=== PATIENT | female | born 1950 | race Caucasian/White ===

== ENCOUNTER 2016-12-24 01:27 | Inpatient (IN) ==
[2016-12-24] MEDS ORDERED: Ipratropium/Albuterol Neb 3 ML IH ONE ×2 (01:40→01:52)
[2016-12-24] MEDS ORDERED: methylPREDNISolone 125 MG/2 ML VIAL IVP ONE (01:40)
[2016-12-24] MEDS ORDERED: *HR* LORazepam 2 MG/ML VIAL IVP ONE (01:41)
--- NOTE | 2016-12-24 01:45 | Emergency Department Note ---
Disposition Clinical Impression: Pneumonia Qualifiers: Pneumonia type: due to unspecified organism Laterality: left Lung location: lower lobe of lung Qualified Code(s): J18.1 - Lobar pneumonia, unspecified organism Asthma with exacerbation Qualifiers: Asthma severity: mild intermittent Qualified Code(s): J45.21 - Mild intermittent asthma with (acute) exacerbation Disposition: Admitted As Inpatient Condition: Good Referrals: Nash Hicks DO [Primary Care Provider] - SOB HPI - General Stated Complaint: Difficulty Breathing tightness in chest Source: patient, EMS Mode of arrival: EMS Limitations: no limitations Nursing Notes Reviewed: Yes Vital Signs Reviewed: Yes - History of Present Illness 66-year-old female presents to the emergency department by emergency squad for evaluation of shortness of breath. Patient called the squad because she was feeling increasing shortness of breath. Patient states she has been having a cough over the last 7-8 days. States is nonproductive. She tonight felt short of breath and panicky that prompted her to come to the emergency room. Patient denies any chest pain. She denies any leg swelling. She denies any history of COPD or CHF. She states she has had some problems with asthma on a mild amount in the past. She is nonsmoker. - Related Data Home Medications Medication Instructions Recorded Confirmed Citalopram [CeleXA] 20 mg PO DAILY 06/12/15 06/12/15 FentaNYL PATCH [Duragesic] 1 each TD Q3D 06/12/15 06/12/15 Gabapentin [Neurontin] 300 mg PO BID 06/12/15 06/12/15 Hydrocodone/Acetaminophen [Disput[place] 1 tab PO QID PRN 06/12/15 06/12/15 5-325 Tablet] LORazepam [Ativan] 1 mg PO BID 06/12/15 06/12/15 Pioglitazone HCl [Actos] 15 mg PO DAILY 06/12/15 06/12/15 SitaGLIPtin [Januvia] 25 mg PO DAILY 06/12/15 06/12/15 glipiZIDE [Glucotrol] 5 mg PO DAILY 06/12/15 06/12/15 Previous Rx's Medication Instructions Recorded Azithromycin [Azithromycin 6-Tab 250 mg PO PER PKG DI #6 tab 12/15/16 Pack] predniSONE [PredniSONE] 40 mg PO DAILY #7 tablet 12/15/16 Allergies Allergy/AdvReac Type Severity Reaction Status Date / Time No Known Allergies Allergy Verified 12/24/16 01:44 All systems ED: reviewed and negative except as stated. Past Medical History - Past Medical History Attestation: Yes The following information was validated with the patient. Source: patient Medical history: Reports: diabetes, fibromyalgia, hypertension, kidney stones, migraine, other Psychiatric history: Reports: anxiety, depression, PTSD DRAFTER (CAD) ELECTRONIC history: Reports: non-contributory - Social History Smoking Status: Never smoker Smokeless Tobacco Status: No Alcohol use: Reports: none Drug use: Reports: none Physical Exam Constitutional: Patient is [alert], obese , mildly tachypneic with frequent cough and cooperative. . The patient appears symptomatic, [nontoxic], and mildly ill. HENT: Head: Normocephalic and atraumatic. Right Ear: External ear normal. Left Ear: External ear normal. Nose: Nose normal. Mouth/Throat: Oropharynx is clear and mucous membranes show [good hydration.] Eyes: Conjunctivae and EOM are normal. Pupils are equal, round, and reactive to light. Right eye exhibits [no] discharge. Left eye exhibits [no] discharge. Neck: Trachea is midline, normal range of motion and [phonation normal]. Neck supple. Cardiovascular: [Regular rhythm], S1 normal, S2 normal, normal heart sounds and intact distal pulses. Exam reveals no gallop and no friction rub. No murmur heard. [Capillary refill is brisk.] [Peripheral pulses are 2+] Pulmonary/Chest: Effort increased No stridor. Mild tachypnea. Mild respiratory distress. There are decreased breath sounds. There are diffuse rhonchi heard throughout all lung reed and a few faint wheezes. There are no rales. Abdominal: Soft. [Bowel sounds are normal]. There exhibits [no] distension and [no] mass. There is no hepatosplenomegaly. There is [no tenderness], [no] CVA tenderness. There is [no rigidity, no rebound, no guarding]. Musculoskeletal: Normal range of motion of uninvolved extremities. There exhibits [no edema]. [ ] Neurological: Patient is alert. Patient displays no atrophy and no tremor. No cranial nerve deficit and exhibits normal muscle tone. Coordination normal. Skin: Skin is warm and dry. No rash noted. No erythema. [Skin color is normal.} Psychiatric: Patient has a anxious mood and affect. Course Course Narrative: Patient showed marked improvement after initial treatment with breathing treatments and steroids. Her chest x-ray suggests the possibility of early pneumonia. Her laboratory studies show mild CO2 retention. Her repeat examination continues to show rhonchi but no wheezes at this time. He and I discussed hospitalization versus discharge and she is afraid to go home. We will admit her for IV antibiotics and oxygen and bronchodilators for further treatment. Vital Signs O2 Sat by Pulse Oximetry 99 12/24/16 01:40 Temperature 98.5 F 12/24/16 01:46 Pulse Rate 101 12/24/16 02:57 Respiratory Rate 18 12/24/16 02:57 Blood Pressure 127/70 12/24/16 02:57 O2 Sat by Pulse Oximetry 95 12/24/16 02:57 Oxygen Delivery Oxygen Delivery Nasal Cannula Shortness of Breath/Dyspnea - Differential Diagnosis Likely: pneumonia, asthma with exacerbation. Unlikely: acute exacerbation of chronic obstructive airways disease, congestive heart failure, pulmonary embolism, pneumothorax - Lab Data Lab results reviewed: Yes I reviewed the patient's lab results. Result diagrams: 12/24/16 01:41 12/24/16 01:41 Lab Results 12/24/16 12/24/16 12/24/16 Range/Units 01:41 01:41 01:41 WBC 13.2 H (4.3-11.1) K/mcL RBC 5.02 H (3.82-4.97) M/mcL Hgb 13.4 (11.5-15.4) g/dL Hct 43.2 (35.3-44.9) % MCV 86.1 (83.0-100.0) fL MCH 26.7 L (28.0-33.3) pg MCHC 31.0 L (31.6-35.5) g/dL RDW 14.7 H (11.5-14.5) % Plt Count 383 (140-400) K/mcL MPV 11.4 (9.4-12.4) fL Immature Gran % 0.8 (0-4) % Seg Neutrophils % 54.9 % Lymphocytes % 33.9 % Monocytes % 7.5 % Eosinophils % 2.3 % Basophils % 0.6 % Neutrophils # 7.3 (1.6-8.9) K/mcL Lymphocytes # 4.5 (0.6-4.6) K/mcL Monocytes # 1.0 (0.0-1.3) K/mcL Eosinophils # 0.3 (0.0-0.6) K/mcL Basophils # 0.1 (0.0-0.2) K/mcL PT 9.7 (9.4-12.1) Seconds INR 0.9 APTT 25.6 L (26.0-36.0) Seconds ABG pH (7.32-7.45) pH Units ABG pCO2 (35-45) mmHg ABG pO2 (85-104) mmHg ABG HCO3 (21-27) mEQ/L ABG Total CO2 (20-26) mEq/L ABG O2 Saturation (95-98) % ABG Base Excess (-2.0 to 3.0) mEq/L VBG Lactic Acid (0.5-2.2) mmol/L Liter Flow L/MIN Blood Gas Modality Inspired O2 % Sodium 143 (136-145) mEq/L Potassium 4.8 H (3.5-4.5) mEq/L Chloride 102 (98-109) mEq/L Carbon Dioxide 28 (19-29) mEq/L BUN 13 (7-20) mg/dL Creatinine 0.91 (0.57-1.11) mg/dL Est GFR ( Amer) > 60 (> 60) Est GFR (Non-Af Amer) > 60 (> 60) BUN/Creatinine Ratio 14 (6-26) Glucose 141 H (70-99) mg/dL Calculated Osmolality 298 (280-300) Calcium 9.6 (8.6-10.8) mg/dL Total Bilirubin 0.2 (0.2-1.2) mg/dL Direct Bilirubin 0.1 (0.0-0.5) mg/dL Indirect Bilirubin 0.1 (0.0-1.2) mg/dL AST 21 (5-34) Units/L ALT 17 (0-55) Units/L Alkaline Phosphatase 109 (38-126) Units/L Troponin I (0-0.03) ng/mL B-Natriuretic Peptide (0-100) pg/mL Serum Total Protein 8.1 (6.0-8.3) g/dL Albumin 3.9 (3.5-5.0) g/dL Globulin 4.2 H (2.4-3.5) g/dL Albumin/Globulin Ratio 0.9 L (1.1-2.2) 12/24/16 12/24/16 12/24/16 Range/Units 01:41 01:41 02:15 WBC (4.3-11.1) K/mcL RBC (3.82-4.97) M/mcL Hgb (11.5-15.4) g/dL Hct (35.3-44.9) % MCV (83.0-100.0) fL MCH (28.0-33.3) pg MCHC (31.6-35.5) g/dL RDW (11.5-14.5) % Plt Count (140-400) K/mcL MPV (9.4-12.4) fL Immature Gran % (0-4) % Seg Neutrophils % % Lymphocytes % % Monocytes % % Eosinophils % % Basophils % % Neutrophils # (1.6-8.9) K/mcL Lymphocytes # (0.6-4.6) K/mcL Monocytes # (0.0-1.3) K/mcL Eosinophils # (0.0-0.6) K/mcL Basophils # (0.0-0.2) K/mcL PT (9.4-12.1) Seconds INR APTT (26.0-36.0) Seconds ABG pH 7.31 L (7.32-7.45) pH Units ABG pCO2 64 H (35-45) mmHg ABG pO2 74 L (85-104) mmHg ABG HCO3 32.2 H (21-27) mEQ/L ABG Total CO2 34.1 H (20-26) mEq/L ABG O2 Saturation 93 L (95-98) % ABG Base Excess 3.8 H (-2.0 to 3.0) mEq/L VBG Lactic Acid (0.5-2.2) mmol/L Liter Flow 4 L/MIN Blood Gas Modality NC Inspired O2 36 % Sodium (136-145) mEq/L Potassium (3.5-4.5) mEq/L Chloride (98-109) mEq/L Carbon Dioxide (19-29) mEq/L BUN (7-20) mg/dL Creatinine (0.57-1.11) mg/dL Est GFR ( Amer) (> 60) Est GFR (Non-Af Amer) (> 60) BUN/Creatinine Ratio (6-26) Glucose (70-99) mg/dL Calculated Osmolality (280-300) Calcium (8.6-10.8) mg/dL Total Bilirubin (0.2-1.2) mg/dL Direct Bilirubin (0.0-0.5) mg/dL Indirect Bilirubin (0.0-1.2) mg/dL AST (5-34) Units/L ALT (0-55) Units/L Alkaline Phosphatase (38-126) Units/L Troponin I 0.03 (0-0.03) ng/mL B-Natriuretic Peptide 30 (0-100) pg/mL Serum Total Protein (6.0-8.3) g/dL Albumin (3.5-5.0) g/dL Globulin (2.4-3.5) g/dL Albumin/Globulin Ratio (1.1-2.2) 12/24/16 Range/Units 02:15 WBC (4.3-11.1) K/mcL RBC (3.82-4.97) M/mcL Hgb (11.5-15.4) g/dL Hct (35.3-44.9) % MCV (83.0-100.0) fL MCH (28.0-33.3) pg MCHC (31.6-35.5) g/dL RDW (11.5-14.5) % Plt Count (140-400) K/mcL MPV (9.4-12.4) fL Immature Gran % (0-4) % Seg Neutrophils % % Lymphocytes % % Monocytes % % Eosinophils % % Basophils % % Neutrophils # (1.6-8.9) K/mcL Lymphocytes # (0.6-4.6) K/mcL Monocytes # (0.0-1.3) K/mcL Eosinophils # (0.0-0.6) K/mcL Basophils # (0.0-0.2) K/mcL PT (9.4-12.1) Seconds INR APTT (26.0-36.0) Seconds ABG pH (7.32-7.45) pH Units ABG pCO2 (35-45) mmHg ABG pO2 (85-104) mmHg ABG HCO3 (21-27) mEQ/L ABG Total CO2 (20-26) mEq/L ABG O2 Saturation (95-98) % ABG Base Excess (-2.0 to 3.0) mEq/L VBG Lactic Acid 1.2 (0.5-2.2) mmol/L Liter Flow L/MIN Blood Gas Modality Inspired O2 % Sodium (136-145) mEq/L Potassium (3.5-4.5) mEq/L Chloride (98-109) mEq/L Carbon Dioxide (19-29) mEq/L BUN (7-20) mg/dL Creatinine (0.57-1.11) mg/dL Est GFR ( Amer) (> 60) Est GFR (Non-Af Amer) (> 60) BUN/Creatinine Ratio (6-26) Glucose (70-99) mg/dL Calculated Osmolality (280-300) Calcium (8.6-10.8) mg/dL Total Bilirubin (0.2-1.2) mg/dL Direct Bilirubin (0.0-0.5) mg/dL Indirect Bilirubin (0.0-1.2) mg/dL AST (5-34) Units/L ALT (0-55) Units/L Alkaline Phosphatase (38-126) Units/L Troponin I (0-0.03) ng/mL B-Natriuretic Peptide (0-100) pg/mL Serum Total Protein (6.0-8.3) g/dL Albumin (3.5-5.0) g/dL Globulin (2.4-3.5) g/dL Albumin/Globulin Ratio (1.1-2.2) - Radiology Data Radiology results reviewed: Yes I reviewed the patient's radiology results. XR/XR chest 1V portable IMPRESSION: Left basilar atelectasis or, less likely, pneumonia - EKG Data EKG attestation: Yes I reviewed and interpreted this EKG. EKG shows normal: Reports: sinus rhythm, axis, intervals, QRS complexes, ST-T waves Rate: Reports: tachycardia
[2016-12-24 02:25] LABS: INR 0.9; Prothrombin Time 9.7 Seconds (9.4-12.1)
[2016-12-24 02:26] LABS: ABG HCO3 32.2 mEQ/L (21-27); ABG PCO2 64 mmHg (35-45); ABG PH 7.31 pH Units (7.32-7.45); ABG PO2 74 mmHg (85-104)
[2016-12-24 02:27] LABS: ABG Base Excess 3.8 mEq/L (-2.0 to 3.0); ABG Oxygen Saturation 93 % (95-98); ABG TCO2 34.1 mEq/L (20-26); Blood Gas Liter Flow 4 L/MIN
[2016-12-24 02:28] LABS: Blood Gas FiO2 36 %
[2016-12-24 02:28] LABS: Activated Partial Thrombo Time 25.6 Seconds (26.0-36.0)
[2016-12-24 02:36] LABS: Alanine Aminotransferase 17 Units/L (0-55); Albumin 3.9 g/dL (3.5-5.0); Albumin/Globulin Ratio 0.9 (1.1-2.2); Alkaline Phosphatase 109 Units/L (38-126); Aspartate Amino Transferase 21 Units/L (5-34); BUN/Creatinine Ratio 14 (6-26); Bilirubin,Direct 0.1 mg/dL (0.0-0.5); Bilirubin,Indirect 0.1 mg/dL (0.0-1.2); Bilirubin,Total 0.2 mg/dL (0.2-1.2); Blood Urea Nitrogen 13 mg/dL (7-20); Calcium 9.6 mg/dL (8.6-10.8); Carbon Dioxide 28 mEq/L (19-29); Chloride 102 mEq/L (98-109); Globulin 4.2 g/dL (2.4-3.5); Glucose 141 mg/dL (70-99); Osmolality,Calculated 298 (280-300); Potassium 4.8 mEq/L (3.5-4.5); Sodium 143 mEq/L (136-145); Total Protein 8.1 g/dL (6.0-8.3); eGFR For African Americans > 60 (> 60); eGFR For Non-African Americans > 60 (> 60)
[2016-12-24 02:38] LABS: Basophils # 0.1 K/mcL (0.0-0.2); Basophils % 0.6 %; Eosinophils # 0.3 K/mcL (0.0-0.6); Eosinophils % 2.3 %; Hematocrit 43.2 % (35.3-44.9); Hemoglobin 13.4 g/dL (11.5-15.4); Immature Granulocytes % 0.8 % (0-4); Lymphocytes # 4.5 K/mcL (0.6-4.6); Lymphocytes % 33.9 %; Mean Corpuscular Hemoglobin 26.7 pg (28.0-33.3); Mean Corpuscular Volume 86.1 fL (83.0-100.0); Mean Platelet Volume 11.4 fL (9.4-12.4); Monocytes % 7.5 %; Neutrophils # 7.3 K/mcL (1.6-8.9); Platelet Count 383 K/mcL (140-400); Red Blood Count 5.02 M/mcL (3.82-4.97); Red Cell Distribution Width 14.7 % (11.5-14.5); Segmented Neutrophils % 54.9 %
[2016-12-24] MEDS ORDERED: Naloxone 0.4 MG/ML INJ IVP PRN (03:21)
[2016-12-24] MEDS ORDERED: Ondansetron ODT 4 MG TAB.RAPDIS SL PRN (03:21)
[2016-12-24] MEDS: *HR* FentaNYL PATCH 25 MCG PATCH TD SCH (04:15)
[2016-12-24] MEDS: *HR* Enoxaparin 40 MG/0.4 ML SYRINGE SQ SCH (05:17)
[2016-12-24] MEDS: methylPREDNISolone 125 MG/2 ML VIAL IVP SCH ×3 (05:17→20:43)
[2016-12-24] MEDS: Ipratropium/Albuterol Neb 3 ML IH SCH ×3 (05:17→17:43)
[2016-12-24] MEDS: *HR* GlipiZIDE 5 MG TABLET PO SCH (09:10)
[2016-12-24] MEDS: Acetaminophen 325 MG TABLET PO PRN ×2 (09:10→21:00)
[2016-12-24] MEDS: Gabapentin 300 MG CAPSULE PO SCH ×2 (09:11→20:43)
[2016-12-24] MEDS: *HR* Pioglitazone 15 MG TABLET PO SCH (09:11)
[2016-12-24] MEDS: *HR* LORazepam 1 MG TABLET PO SCH ×2 (09:11→20:43)
[2016-12-24] MEDS: Levofloxacin 750 MG/150 ML 750 MG/150 ML BAG IVPB SCH (09:11)
[2016-12-24] MEDS: *HR* SitaGLIPtin 25 MG TABLET PO SCH (09:11)
[2016-12-24] MEDS ORDERED: *HR* Dextrose 50 % in Water (Syg) 50 ML SYRINGE IVP PRN (12:47)
[2016-12-24] MEDS ORDERED: Dextrose Gel 15 GM PO PRN ×2 (12:47)
[2016-12-24] MEDS ORDERED: D5% in Water 1,000 ML IVC PRN (12:47)
[2016-12-24] MEDS: Insulin LISPRO 300 UNITS/3 ML VIAL SQ SCH ×4 (12:57→21:00)
--- NOTE | 2016-12-24 15:30 | Internal Med History&Physical ---
Date of Encounter: 12/24/16 Time of Encounter: 15:28 Assessment and Plan (1) Pneumonia Current visit: Yes Status: Acute Treat for pneumonia with IV antibiotics breathing treatments and steroids aggressively. Patient is already much improved. Follow a.m. Code(s): J18.9 - Pneumonia, unspecified organism SNOMED Code(s): 833283742 (2) Asthma with exacerbation Current visit: Yes Status: Acute Patient states never smoked except in her youth and states that she really has not had any problems with asthma in the past. It appears that possibly infection precipitated this exacerbation Qualifiers: Asthma severity: mild intermittent Qualified Code(s): J45.21 - Mild intermittent asthma with (acute) exacerbation Code(s): J45.901 - Unspecified asthma with (acute) exacerbation SNOMED Code(s) : 137104297 Internal Medicine - H&P: HPI Chief complaint: Short of breath Admitted From: Home Plans for Post Hospital Care: Home History of present illness: Ms. Villafana is a 66 year old female Past Med Surg Social Fam HX - Past Medical History Medical history: arthritis, asthma, diabetes, fibromyalgia, GI bleed, hypertension, kidney stones, migraine, other Psychiatric history: anxiety, depression, PTSD - Past Surgical History Surgical History: appendectomy, cholecystectomy, hysterectomy, other, bariatric surgery - Social History Smoking Status: Former smoker Smokeless Tobacco Status: No Alcohol use: none Drug use: none - Family History Son Adopted: [place]: yoav batista Age: 41 Family Member Ethnicity: Non- Living Status: Still Living Hx Family Cardiac Disorders: Yes Hx Family Respiratory Disorders: Yes Hx Family Cancer: Yes Hx Family GI Disorders: No Hx Family Genitourinary Disorders: No Hx Family Endocrine Disorder: No Hx Family Musculoskeletal Disorders: No Hx Family Neuromuscular Disorders: No Hx Family Neurologic Disorders: No Hx Family HEENT Disorders: Yes Hx Family Autoimmune Disorders: No Hx Family Reproductive Disorders: No Hx Family Psychosocial Disorders: Yes Hx Family Medical Disorders: No Internal Medicine - H&P: Meds Citalopram [CeleXA] 20 mg PO DAILY 06/12/15 [History] FentaNYL PATCH [Duragesic] 1 each TD Q3D 06/12/15 [History] Gabapentin [Neurontin] 300 mg PO BID 06/12/15 [History] LORazepam [Ativan] 1 mg PO BID 12/28/15 [History] Pioglitazone HCl [Actos] 15 mg PO DAILY 06/12/15 [History] SitaGLIPtin [Januvia] 25 mg PO DAILY 06/12/15 [History] glipiZIDE [Glucotrol] 5 mg PO DAILY 06/12/15 [History] Allergies No Known Allergies Allergy (Verified 12/24/16 01:44) All Systems PM: A 10-system review of systems was performed and is negative for pertinent findings except as documented above in the HPI. - Constitutional Vitals: Temp Pulse Resp BP Pulse Ox 97.9 F 92 18 142/84 94 12/24/16 11:00 12/24/16 11:00 12/24/16 11:00 12/24/16 11:00 12/24/16 11:00 - Head Head exam: Present: atraumatic, normocephalic - Neck Neck exam general surgery: Present: supple, trachea midline. Absent: lymphadenopathy - Respiratory Respiratory exam: Present: CTAB. Absent: accessory muscle use, rales, rhonchi, wheezes Additional comments: Wheezing with a cough but otherwise generally clear with occasional rhonchi - Cardiovascular Cardiovascular exam: Present: RRR, +S1, +S2. Absent: diastolic murmur, gallop, rubs, systolic murmur - GI/Abdominal GI/Abdominal exam: Present: normal bowel sounds, soft, no peritoneal signs. Absent: distended, tenderness Internal Med - H&P Results - Labs CBC & Chem 7: 12/24/16 01:41 12/24/16 01:41 Labs: Lab appears stable - VTE Documentation of Mechanical Device: Graduated compression elastic hosiery
--- NOTE | 2016-12-24 16:38 | Electrocardiograph Report ---
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
[2016-12-25] MEDS: Ipratropium/Albuterol Neb 3 ML IH SCH ×4 (00:35→16:48)
[2016-12-25] MEDS: *HR* Enoxaparin 40 MG/0.4 ML SYRINGE SQ SCH (05:41)
[2016-12-25] MEDS: methylPREDNISolone 125 MG/2 ML VIAL IVP SCH ×3 (05:41→21:58)
[2016-12-25] MEDS: Levofloxacin 750 MG/150 ML 750 MG/150 ML BAG IVPB SCH (08:45)
[2016-12-25] MEDS: Insulin LISPRO 300 UNITS/3 ML VIAL SQ SCH ×4 (08:47→21:57)
[2016-12-25] MEDS: Acetaminophen 325 MG TABLET PO PRN ×2 (08:48→21:57)
[2016-12-25] MEDS: *HR* Pioglitazone 15 MG TABLET PO SCH (08:48)
[2016-12-25] MEDS: Gabapentin 300 MG CAPSULE PO SCH ×2 (08:48→21:57)
[2016-12-25] MEDS: *HR* LORazepam 1 MG TABLET PO SCH ×2 (08:48→21:57)
[2016-12-25] MEDS: *HR* SitaGLIPtin 25 MG TABLET PO SCH (08:48)
[2016-12-25] MEDS: *HR* GlipiZIDE 5 MG TABLET PO SCH (08:48)
[2016-12-26] MEDS: Ipratropium/Albuterol Neb 3 ML IH SCH ×4 (01:00→17:54)
[2016-12-26] MEDS: methylPREDNISolone 125 MG/2 ML VIAL IVP SCH ×2 (05:57→14:59)
[2016-12-26] MEDS: *HR* Enoxaparin 40 MG/0.4 ML SYRINGE SQ SCH (05:57)
[2016-12-26] MEDS: Levofloxacin 750 MG/150 ML 750 MG/150 ML BAG IVPB SCH (08:56)
[2016-12-26] MEDS: Gabapentin 300 MG CAPSULE PO SCH ×2 (08:58→20:55)
[2016-12-26] MEDS: *HR* GlipiZIDE 5 MG TABLET PO SCH (08:58)
[2016-12-26] MEDS: *HR* LORazepam 1 MG TABLET PO SCH ×2 (08:58→20:55)
[2016-12-26] MEDS: *HR* Pioglitazone 15 MG TABLET PO SCH (08:58)
[2016-12-26] MEDS: *HR* SitaGLIPtin 25 MG TABLET PO SCH (08:58)
[2016-12-26] MEDS: Insulin LISPRO 300 UNITS/3 ML VIAL SQ SCH ×4 (08:59→20:54)
[2016-12-27] MEDS: Ipratropium/Albuterol Neb 3 ML IH SCH ×2 (00:15→04:43)
[2016-12-27] MEDS: *HR* FentaNYL PATCH 25 MCG PATCH TD SCH (00:18)
[2016-12-27] MEDS: Acetaminophen 325 MG TABLET PO PRN (04:43)
[2016-12-27] MEDS: *HR* Enoxaparin 40 MG/0.4 ML SYRINGE SQ SCH (04:43)
[2016-12-27] MEDS: *HR* GlipiZIDE 5 MG TABLET PO SCH (08:24)
[2016-12-27] MEDS: Gabapentin 300 MG CAPSULE PO SCH (08:24)
[2016-12-27] MEDS: *HR* SitaGLIPtin 25 MG TABLET PO SCH (08:24)
[2016-12-27] MEDS: *HR* LORazepam 1 MG TABLET PO SCH (08:24)
[2016-12-27] MEDS: Insulin LISPRO 300 UNITS/3 ML VIAL SQ SCH (08:25)
--- NOTE | 2016-12-27 10:53 | Internal Med Progress Note ---
Date of Encounter: 12/25/16 Time of Encounter: 10:51 - Assessment and plan (1) Pneumonia Current Visit: Yes Status: Acute Assessment and plan: I will continue show some improvement. Lungs are better occasional rhonchi Code(s): J18.9 - Pneumonia, unspecified organism SNOMED Code(s): 463293769 (2) Asthma with exacerbation Current Visit: Yes Status: Acute Assessment and plan: States she has had very little problems with asthma. Probably she had an acute bronchitis that precipitated an exacerbation Qualifiers: Asthma severity: mild intermittent Qualified Code(s): J45.21 - Mild intermittent asthma with (acute) exacerbation Code(s): J45.901 - Unspecified asthma with (acute) exacerbation SNOMED Code(s) : 643575812 - Time Spent With Patient less than 15 minutes - Subjective Interval history: Doing better but still coughing getting short of breath with coughing fits - Constitutional Vitals: Temp Pulse Resp BP Pulse Ox 98.2 F 87 16 138/75 96 12/27/16 06:41 12/27/16 06:41 12/27/16 06:41 12/27/16 06:41 12/27/16 06:41 - Head Head exam: Present: atraumatic, normal inspection, normocephalic - Neck Neck exam general surgery: Present: supple, trachea midline. Absent: lymphadenopathy - Respiratory Respiratory exam: Present: CTAB. Absent: accessory muscle use, rales, rhonchi, wheezes - Cardiovascular Cardiovascular exam: Present: RRR, +S1, +S2. Absent: diastolic murmur, gallop, rubs, systolic murmur - GI/Abdominal GI/Abdominal exam: Present: normal bowel sounds, soft, no peritoneal signs. Absent: distended, tenderness Internal Medicine: Result - Labs CBC & Chem 7: 12/24/16 01:41 12/24/16 01:41 - ABG Interpretation ABG results: ABG ABG pH 7.31 pH Units (7.32-7.45) L 12/24/16 02:15 ABG pCO2 64 mmHg (35-45) H 12/24/16 02:15 ABG pO2 74 mmHg (85-104) L 12/24/16 02:15 ABG O2 Saturation 93 % (95-98) L 12/24/16 02:15 PT/INR, D-dimer PT 9.7 Seconds (9.4-12.1) 12/24/16 01:41 - VTE Documentation of Mechanical Device: Graduated compression elastic hosiery Consult Discharge Plan - Plan Referrals: Deepa Luna CNP [Advanced Practice Nurse] - 01/01/17 1:30 am (follow up appointment, covering for Dr. austin)
--- NOTE | 2016-12-27 10:55 | Internal Med Progress Note ---
Date of Encounter: 12/26/16 Time of Encounter: 10:53 - Assessment and plan (1) Pneumonia Current Visit: Yes Status: Acute Assessment and plan: She is much improved. Code(s): J18.9 - Pneumonia, unspecified organism SNOMED Code(s): 507156853 (2) Asthma with exacerbation Current Visit: Yes Status: Acute Qualifiers: Asthma severity: mild intermittent Qualified Code(s): J45.21 - Mild intermittent asthma with (acute) exacerbation Code(s): J45.901 - Unspecified asthma with (acute) exacerbation SNOMED Code(s) : 741522836 - Subjective Interval history: Doing better but still coughing getting short of breath with coughing fits - Constitutional Vitals: Temp Pulse Resp BP Pulse Ox 98.2 F 87 16 138/75 96 12/27/16 06:41 12/27/16 06:41 12/27/16 06:41 12/27/16 06:41 12/27/16 06:41 - Head Head exam: Present: atraumatic, normal inspection, normocephalic - Neck Neck exam general surgery: Present: supple, trachea midline. Absent: lymphadenopathy - Respiratory Respiratory exam: Present: CTAB. Absent: accessory muscle use, rales, rhonchi, wheezes - Cardiovascular Cardiovascular exam: Present: RRR, +S1, +S2. Absent: diastolic murmur, gallop, rubs, systolic murmur Internal Medicine: Result - Labs CBC & Chem 7: 12/24/16 01:41 12/24/16 01:41 Labs: Labs stable - ABG Interpretation ABG results: ABG ABG pH 7.31 pH Units (7.32-7.45) L 12/24/16 02:15 ABG pCO2 64 mmHg (35-45) H 12/24/16 02:15 ABG pO2 74 mmHg (85-104) L 12/24/16 02:15 ABG O2 Saturation 93 % (95-98) L 12/24/16 02:15 PT/INR, D-dimer PT 9.7 Seconds (9.4-12.1) 12/24/16 01:41 - VTE Documentation of Mechanical Device: Graduated compression elastic hosiery Consult Discharge Plan - Plan Referrals: Deepa Luna CARPENTER HELPER [Advanced Practice Nurse] - 01/01/17 1:30 am (follow up appointment, covering for Dr. austin)
--- NOTE | 2016-12-27 10:57 | Discharge Summary ---
Date of Encounter: 12/27/16 Time of Encounter: 10:55 - Discharge Diagnosis (1) Pneumonia Status: Acute Comments: Ammonias resolved Code(s): J18.9 - Pneumonia, unspecified organism SNOMED Code(s): 907104800 (2) Asthma with exacerbation Priority: Primary Status: Acute Comments: This is seems to have been resolved Qualifiers: Asthma severity: mild intermittent Qualified Code(s): J45.21 - Mild intermittent asthma with (acute) exacerbation Code(s): J45.901 - Unspecified asthma with (acute) exacerbation SNOMED Code(s) : 815115011 - Discharge Medications Home Medications: Citalopram [CeleXA] 20 mg PO DAILY 06/12/15 [History] FentaNYL PATCH [Duragesic] 1 each TD Q3D 06/12/15 [History] Gabapentin [Neurontin] 300 mg PO BID 06/12/15 [History] LORazepam [Ativan] 1 mg PO BID 06/12/15 [History] Pioglitazone HCl [Actos] 15 mg PO DAILY 06/12/15 [History] SitaGLIPtin [Januvia] 25 mg PO DAILY 06/12/15 [History] glipiZIDE [Glucotrol] 5 mg PO DAILY 06/12/15 [History] Allergies/Adverse Reactions: Allergies No Known Allergies Allergy (Verified 12/24/16 01:44) Date of admission: 12/24/16 03:42 Primary care physician: Javier Conrad Discharging clinician: Barak Chavez Anticipated date of discharge: 12/27/16 - Patient Status Disposition: Home, Self-Care - Discharge Instructions Follow Up With: Deepa Luna STROBOROMA OPERATOR [Advanced Practice Nurse] - 01/01/17 1:30 am (follow up appointment, covering for Dr. austin) Forms: ED Satisfaction Letter - Diet and Activity Activity: resume usual activities as tolerated Diet: diabetic diet Hospital course: Ms. Villafana is a 66 year old female - Time Spent with Patient Total time spent providing and/or coordinating discharge services: - Constitutional Vitals: Temp Pulse Resp BP Pulse Ox 98.2 F 87 16 138/75 96 12/27/16 06:41 12/27/16 06:41 12/27/16 06:41 12/27/16 06:41 12/27/16 06:41 - Head Head exam: Present: atraumatic, normal inspection, normocephalic - Neck Neck exam general surgery: Present: supple, trachea midline. Absent: lymphadenopathy - Respiratory Respiratory exam: Present: CTAB. Absent: accessory muscle use, rales, rhonchi, wheezes - Cardiovascular Cardiovascular exam: Present: RRR, +S1, +S2. Absent: diastolic murmur, gallop, rubs, systolic murmur - VTE Documentation of Mechanical Device: Graduated compression elastic hosiery
[2016-12-27 11:43] VITALS: BP 121/72
== END 2016-12-27 11:50 | disposition home or self-care (01) | DRG 194 ==
LOC: EMEROOGRE 01:27 → INPGRE 03:42
PROVIDERS: ADMIT Internal Medicine; ATTEND Internal Medicine